=== PATIENT | female | born 1985 | race Two or more races ===

== ENCOUNTER 2016-08-27 00:03 | Emergency (ER) | payer MEDICAID ==
[~2016-08-27] VITALS: Ht 165.1 cm; Wt 72.6 kg
[2016-08-27 00:58] VITALS: BP 115/73
[2016-08-27 01:22] LABS: Urine Bilirubin Negative (Negative); Urine Blood 3+ /uL (Negative); Urine Color Yellow (Yellow); Urine Glucose Normal (Normal); Urine Ketone Negative (Negative); Urine Mucus FEW (None Seen); Urine Nitrite POSITIVE (Negative); Urine RBC 43 /hpf (0 - 4); Urine Squamous Epithelial Cell FEW /hpf (<5); Urine pH 5.5 (5.0-8.0)
[2016-08-27 01:25] LABS: Basophils # (auto) 0 uL; Basophils % (auto) 0.4 % (0.0-2.0); CONDITION Y; Eosinophils # (auto) 0.4 uL; Eosinophils % (auto) 3.6 % (0.0-7.0); Hematocrit 45.5 % (36.0-46.0); Hemoglobin 15.1 g/dL (12.2-16.2); Lymphocytes % (auto) 29.1 % (10.0-50.0); Mean Corpuscular Hemoglobin 29.9 pg (28.0-32.0); Mean Corpuscular Hgb Conc. 33.1 g/dL (32.0-36.0); Mean Corpuscular Volume 90.4 fL (80.0-100.0); Mean Platelet Volume 8.9 fL (7.4-10.4); Monocytes # (auto) 0.7 uL; Monocytes % (auto) 6.6 % (0.0-12.0); Neutrophils # (auto) 6.2 uL; Neutrophils % (auto) 60.3 % (37.0-80.0); Platelet Count (auto) 292 10^3/uL (140-450); Red Cell Distribution Width 14.2 % (11.6-16.0); White Blood Cell 10.2 10^3/uL (4.4-10.8)
[2016-08-27 01:42] LABS: INR 0.9 (0.9-1.15); Partial Thromboplastin Time 26.6 sec (22.64-33.71); Prothrombin Time 9.8 sec (9.37-12.3)
[2016-08-27 01:43] LABS: Anion Gap 9 (5-15); Aspartate Aminotransferase 16 U/L (15-37); Blood Urea Nitrogen 12 mg/dL (7-18); Calcium 8.4 mg/dL (8.5-10.1); Carbon Dioxide 23 mmol/L (21-32); Chloride 109 mmol/L (98-107); GFR African American 92 mL/min; GFR Non-African American 76 mL/min; Glucose 97 mg/dL (74-106); Sodium 141 mmol/L (136-145)
[2016-08-27 01:48] LABS: Alkaline Phosphatase 72 U/L (45-117); Bilirubin, Total 0.2 mg/dL (0.2-1.0); Total Protein 7.7 g/dL (6.4-8.2)
== END 2016-08-27 06:45 | disposition left against medical advice (07) ==
LOC: ER 00:05
DX: R07.9 Chest pain, unspecified (principal); Z53.21 Procedure and treatment not carried out due to patient leaving prior to being seen by health care provider
CPT/HCPCS: 36415; 71020; 80053; 81001; 81025; 84484; 85025; 85610; 85730; 93005

== ENCOUNTER 2019-08-05 14:56 | Inpatient (IN) | payer MEDICAID ==
[~2019-08-05] VITALS: Ht 165.1 cm; Wt 82.2 kg
[2019-08-05 17:16] LABS: Basophils # (auto) 0 10 ^3/uL (0-0.2); Basophils % (auto) 0.5 % (0.0-2.0); Eosinophils # (auto) 0.3 10 ^3/uL (0-0.8); Eosinophils % (auto) 5.1 % (0.0-7.0); Hemoglobin 14.5 g/dL (12.2-16.2); Lymphocytes # (auto) 2.4 10 ^3/uL (0.4-5.4); Lymphocytes % (auto) 38.4 % (10.0-50.0); Mean Corpuscular Hemoglobin 30.7 pg (28.0-32.0); Mean Corpuscular Volume 92.9 fL (80.0-100.0); Monocytes # (auto) 0.4 10 ^3/uL (0-1.3); Neutrophils # (auto) 3.1 10 ^3/uL (1.6-8.6); Platelet Count (auto) 233 10^3/uL (140-450); Red Blood Cells 4.74 10^6/uL (4.0-5.20); Red Cell Distribution Width 13.2 % (11.8-14.3); White Blood Cell 6.2 10^3/uL (4.4-10.8)
[2019-08-05 17:28] LABS: Albumin 3.4 g/dL (3.4-5.0); Anion Gap 7 (5-15); Blood Urea Nitrogen 7 mg/dL (7-18); Calcium 8.1 mg/dL (8.5-10.1); Carbon Dioxide 23 mmol/L (21-32); Chloride 110 mmol/L (98-107); Glucose 117 mg/dL (74-106); Magnesium 2.4 mg/dL (1.6-2.6); Potassium 3.4 mmol/L (3.5-5.1); Sodium 140 mmol/L (136-145)
[2019-08-05 17:34] LABS: Alanine Aminotransferase 26 U/L (13-56); Alkaline Phosphatase 55 U/L (45-117); Aspartate Aminotransferase 17 U/L (15-37); BUN/Creatinine Ratio 9.2; Bilirubin, Total 0.4 mg/dL (0.2-1.0); GFR African American 113 mL/min; GFR Non-African American 93 mL/min; Total Protein 6.6 g/dL (6.4-8.2)
[2019-08-05 18:38] LABS: Urine Bacteria NONE SEEN /hpf (None Seen); Urine Blood Negative /uL (Negative); Urine Mucus FEW (None Seen); Urine WBC 1 /hpf (0 - 5)
[2019-08-05] MEDS ORDERED: cefTRIAXone 1GM/50ML D5W 50 ML IV ONE (18:45)
[2019-08-05] MEDS ORDERED: POTASSIUM CHL 20 Meq TABLET PO ONE (18:45)
[2019-08-05] MEDS ORDERED: SODIUM CHLORIDE 0.9% 1,000 ML IV ONE (18:45)
[2019-08-05] MEDS ORDERED: HYDROcodone-ACET 5/325MG TAB PO PRN (21:30)
[2019-08-05] MEDS ORDERED: LORazepam 0.5 MG TAB PO PRN (21:30)
[2019-08-05] MEDS ORDERED: ACETAMINOPHEN 500 MG TAB PO PRN (21:30)
[2019-08-05] MEDS ORDERED: ALBUTEROL SULF 2.5 MG/0.5ML(0.5%) NEB SOLN NEB PRN (21:30)
[2019-08-05] MEDS ORDERED: ONDANSETRON HCL 4 MG/2 ML VIAL IV PRN (21:30)
[2019-08-05] MEDS ORDERED: SODIUM CHLORIDE 0.9% 1,000 ML IV SCH (21:30)
[2019-08-05] MEDS ORDERED: ACETAMINOPHEN 325 MG TAB PO PRN (21:30)
[2019-08-05] MEDS ORDERED: TEMAZEPAM 15 MG CAP PO PRN (21:30)
[2019-08-05] MEDS ORDERED: IPRATROPIUM BROM 0.5 MG/2.5ML INH SOL NEB PRN (21:30)
[2019-08-05] MEDS ORDERED: MORPHINE SULF INJ 2 MG/ML SYRINGE 1ML IV PRN (21:30)
[2019-08-05] MEDS ORDERED: DOCUSATE SOD 100 MG CAP PO PRN (21:30)
[2019-08-05] MEDS ORDERED: ALBUTEROL SULF HFA 90MCG INH 200DOSE IN SCH ×2 (22:00)
[2019-08-05] MEDS: DOXYCYCLINE 100MG/250ML 250 ML IV SCH (22:00)
[2019-08-05] MEDS: methylPREDNISolone SOD SUCC 125 MG/2 ML VL IV SCH (23:16)
[2019-08-06 00:53] VITALS: BP 110/66
[2019-08-06 04:15] VITALS: BP 106/64
[2019-08-06 05:50] VITALS: BP 115/78
[2019-08-06] MEDS: cefTRIAXone 1GM/50ML D5W 50 ML IV SCH (09:47)
[2019-08-06] MEDS: methylPREDNISolone SOD SUCC 125 MG/2 ML VL IV SCH (09:48)
[2019-08-06] MEDS: ENOXAPARIN SOD 40 MG/0.4 ML SYRINGE SC SCH (09:50)
[2019-08-06] MEDS ORDERED: CHOLECALCIFEROL (VITD3) 1,000IU=25mCg TAB PO SCH (10:00)
[2019-08-06] MEDS ORDERED: AZITHROMYCIN 500MG/ 250ML 250 ML IV SCH (10:00)
[2019-08-06] MEDS ORDERED: ZINC SULFATE 220mg CAP or TAB PO SCH (10:00)
[2019-08-06] MEDS ORDERED: ASCORBIC ACID 1,000 MG TAB PO SCH (10:00)
[2019-08-06] MEDS: DOXYCYCLINE 100MG/250ML 250 ML IV SCH (14:43)
[2019-08-06 16:07] LABS: Basophils # (auto) 0 10 ^3/uL (0-0.2); Basophils % (auto) 0.2 % (0.0-2.0); Eosinophils # (auto) 0 10 ^3/uL (0-0.8); Hematocrit 43.9 % (36.0-46.0); Hemoglobin 14.7 g/dL (12.2-16.2); Lymphocytes # (auto) 1.3 10 ^3/uL (0.4-5.4); Lymphocytes % (auto) 9.4 % (10.0-50.0); Mean Corpuscular Hemoglobin 30.8 pg (28.0-32.0); Mean Corpuscular Hgb Conc. 33.4 g/dL (32.0-36.0); Mean Corpuscular Volume 92.3 fL (80.0-100.0); Monocytes # (auto) 0.6 10 ^3/uL (0-1.3); Neutrophils # (auto) 12.2 10 ^3/uL (1.6-8.6); Neutrophils % (auto) 86.4 % (37.0-80.0); Nucleated Red Blood Cells % 0.1 %; Platelet Count (auto) 259 10^3/uL (140-450); Red Blood Cells 4.76 10^6/uL (4.0-5.20); Red Cell Distribution Width 13.3 % (11.8-14.3); White Blood Cell 14.2 10^3/uL (4.4-10.8)
[2019-08-06 16:25] LABS: Albumin 3.5 g/dL (3.4-5.0); Calcium 8.5 mg/dL (8.5-10.1); Magnesium 2.4 mg/dL (1.6-2.6); Potassium 3.9 mmol/L (3.5-5.1)
[2019-08-06 16:30] LABS: BUN/Creatinine Ratio 11.4; Bilirubin, Total 0.3 mg/dL (0.2-1.0)
[2019-08-06 17:00] VITALS: BP 134/84
[2019-08-06 22:00] VITALS: BP 100/56
[2019-08-06] MEDS: PANTOPRAZOLE 40 MG TAB PO SCH (23:46)
[2019-08-07 05:00] VITALS: BP_SYST 109; BP_SYST 130; BP_DIAS 53; BP_DIAS 69
[2019-08-07 06:50] LABS: Basophils # (auto) 0.1 10 ^3/uL (0-0.2); Basophils % (auto) 0.7 % (0.0-2.0); Eosinophils # (auto) 0.1 10 ^3/uL (0-0.8); Eosinophils % (auto) 1.2 % (0.0-7.0); Hematocrit 42.7 % (36.0-46.0); Hemoglobin 14.3 g/dL (12.2-16.2); Lymphocytes # (auto) 3.6 10 ^3/uL (0.4-5.4); Lymphocytes % (auto) 38.4 % (10.0-50.0); Mean Corpuscular Hemoglobin 31.2 pg (28.0-32.0); Mean Corpuscular Hgb Conc. 33.5 g/dL (32.0-36.0); Mean Corpuscular Volume 92.9 fL (80.0-100.0); Monocytes # (auto) 0.7 10 ^3/uL (0-1.3); Monocytes % (auto) 6.9 % (0.0-12.0); Neutrophils % (auto) 52.8 % (37.0-80.0); Nucleated Red Blood Cells % 0.2 %; Platelet Count (auto) 242 10^3/uL (140-450); Red Cell Distribution Width 13.3 % (11.8-14.3); White Blood Cell 9.5 10^3/uL (4.4-10.8)
[2019-08-07 07:11] LABS: Albumin 3.3 g/dL (3.4-5.0); Calcium 8.1 mg/dL (8.5-10.1); Magnesium 2.6 mg/dL (1.6-2.6); Potassium 3.8 mmol/L (3.5-5.1)
[2019-08-07 07:12] LABS: INR 0.98 (0.9-1.15); Partial Thromboplastin Time 25.5 sec (23.64-32.05)
[2019-08-07 07:15] LABS: BUN/Creatinine Ratio 13.8; Bilirubin, Total 0.2 mg/dL (0.2-1.0); Total Protein 6.5 g/dL (6.4-8.2)
[2019-08-07 09:00] VITALS: BP 112/64
[2019-08-07] MEDS: cefTRIAXone 1GM/50ML D5W 50 ML IV SCH ×2 (10:00→10:22)
[2019-08-07] MEDS: PANTOPRAZOLE 40 MG TAB PO SCH ×2 (10:22→10:33)
[2019-08-07] MEDS: ENOXAPARIN SOD 40 MG/0.4 ML SYRINGE SC SCH ×2 (10:23→10:33)
[2019-08-07 13:00] VITALS: BP 113/62
[2019-08-07 14:24] VITALS: BP 113/62
== END 2019-08-07 14:55 | disposition home or self-care (01) | DRG 145 ==
LOC: ER 14:56 → EAST 14:57
PROVIDERS: ADMIT Hospitalist; ATTEND Internal Medicine
DX: J20.9 Acute bronchitis, unspecified (principal); J18.9 Pneumonia, unspecified organism; Z03.818 Encounter for observation for suspected exposure to other biological agents ruled out; F32.9 Major depressive disorder, single episode, unspecified; F41.9 Anxiety disorder, unspecified; F17.210 Nicotine dependence, cigarettes, uncomplicated; Z90.49 Acquired absence of other specified parts of digestive tract
CPT/HCPCS: 36415; 71045; 80053; 81001; 81025; 83605; 83735; 84100; 84132; 84484; 85025; 85379; 85610; 85730; 87040; 87070; 87804; 87880; 93005; 96365; G0378; J0696

== ENCOUNTER 2020-04-07 09:39 | Emergency (ER) | payer MEDICAID ==
[~2020-04-07] VITALS: Ht 165.1 cm; Wt 74.8 kg
[2020-04-07 10:58] VITALS: BP 115/47
[2020-04-07 11:07] LABS: Basophils # (auto) 0 10 ^3/uL (0-0.2); Basophils % (auto) 0.9 % (0.0-2.0); Eosinophils # (auto) 0.4 10 ^3/uL (0-0.8); Hematocrit 42.3 % (36.0-46.0); Lymphocytes # (auto) 1.9 10 ^3/uL (0.4-5.4); Lymphocytes % (auto) 36.3 % (10.0-50.0); Mean Corpuscular Hemoglobin 30.7 pg (28.0-32.0); Mean Corpuscular Hgb Conc. 33.1 g/dL (32.0-36.0); Mean Corpuscular Volume 92.8 fL (80.0-100.0); Monocytes # (auto) 0.4 10 ^3/uL (0-1.3); Monocytes % (auto) 7.2 % (0.0-12.0); Neutrophils # (auto) 2.5 10 ^3/uL (1.6-8.6); Neutrophils % (auto) 47.6 % (37.0-80.0); Platelet Count (auto) 248 10^3/uL (140-450); Red Blood Cells 4.55 10^6/uL (4.0-5.20); Red Cell Distribution Width 13.9 % (11.8-14.3); White Blood Cell 5.3 10^3/uL (4.4-10.8)
[2020-04-07 11:21] LABS: Urine Bacteria NONE SEEN /hpf (None Seen); Urine Blood 3+ /uL (Negative); Urine WBC 5 /hpf (0 - 5)
[2020-04-07 11:26] LABS: Potassium 4.2 mmol/L (3.5-5.1)
[2020-04-07 11:33] LABS: Albumin 3.5 g/dL (3.4-5.0); BUN/Creatinine Ratio 13.7; Bilirubin, Total 0.3 mg/dL (0.2-1.0); Calcium 8.2 mg/dL (8.5-10.1)
== END 2020-04-07 14:22 | disposition home or self-care (01) ==
LOC: ER 09:39
DX: O20.0 Threatened abortion (principal)
CPT/HCPCS: 36415; 76801; 76817; 80053; 81001; 84702; 85025

== ENCOUNTER 2020-04-09 07:32 | Emergency (ER) | payer MEDICAID ==
[~2020-04-09] VITALS: Ht 165.1 cm; Wt 74.8 kg
[2020-04-09 08:02] LABS: Urine Bacteria FEW /hpf (None Seen); Urine Blood 2+ /uL (Negative); Urine Mucus FEW (None Seen); Urine Specific Gravity 1.022 (1.001-1.035); Urine WBC 7 /hpf (0 - 5)
[2020-04-09] MEDS ORDERED: SODIUM CHLORIDE 0.9% 1,000 ML IV ONE (08:45)
[2020-04-09 10:50] VITALS: BP 115/69
[2020-04-09 11:47] LABS: Basophils # (auto) 0 10 ^3/uL (0-0.2); Basophils % (auto) 0.8 % (0.0-2.0); Eosinophils # (auto) 0.3 10 ^3/uL (0-0.8); Eosinophils % (auto) 5.7 % (0.0-7.0); Hematocrit 42.7 % (36.0-46.0); Hemoglobin 14.5 g/dL (12.2-16.2); Lymphocytes # (auto) 1.6 10 ^3/uL (0.4-5.4); Lymphocytes % (auto) 28.9 % (10.0-50.0); Mean Corpuscular Hemoglobin 31.4 pg (28.0-32.0); Mean Corpuscular Volume 92.3 fL (80.0-100.0); Monocytes # (auto) 0.3 10 ^3/uL (0-1.3); Monocytes % (auto) 5.9 % (0.0-12.0); Neutrophils # (auto) 3.3 10 ^3/uL (1.6-8.6); Neutrophils % (auto) 58.7 % (37.0-80.0); Platelet Count (auto) 259 10^3/uL (140-450); Red Blood Cells 4.63 10^6/uL (4.0-5.20); Red Cell Distribution Width 13.9 % (11.8-14.3); White Blood Cell 5.6 10^3/uL (4.4-10.8)
== END 2020-04-09 10:54 | disposition home or self-care (01) ==
LOC: ER 07:32
DX: O23.41 Unspecified infection of urinary tract in pregnancy, first trimester (principal); O46.91 Antepartum hemorrhage, unspecified, first trimester; O99.331 Smoking (tobacco) complicating pregnancy, first trimester; Z3A.00 Weeks of gestation of pregnancy not specified
CPT/HCPCS: 36415; 81001; 84702; 85025; 96360

== ENCOUNTER 2023-03-28 14:37 | Emergency (ER) | payer MEDICAID ==
[~2023-03-28] VITALS: Ht 165.1 cm; Wt 97.8 kg
[2023-03-28] MEDS ORDERED: HYDROcodone-ACET 5/325MG TAB PO ONE (17:00)
[2023-03-28] MEDS ORDERED: NABU-72 PO (18:34)
[2023-03-28] MEDS ORDERED: METH-1181 PO (18:34)
[2023-03-28] MEDS ORDERED: PRED20TA2 PO (18:34)
[2023-03-28 22:07] VITALS: BP 121/75; PULSE 72; RESP 14; TEMP 97.5; O2SAT 98
== END 2023-03-28 22:08 | disposition home or self-care (01) ==
LOC: ER 14:37
DX: R25.2 Cramp and spasm (principal); R20.2 Paresthesia of skin; M79.662 Pain in left lower leg; F17.210 Nicotine dependence, cigarettes, uncomplicated; Z90.49 Acquired absence of other specified parts of digestive tract
CPT/HCPCS: 72100; 73590; 93971

== ENCOUNTER 2023-11-22 21:52 | Emergency (ER) | payer MEDICAID ==
[~2023-11-22] VITALS: Ht 165.1 cm; Wt 75.1 kg
[~2023-11-22 21:52] MED LIST: METH-1181 PO; NABU-72 PO; PRED20TA2 PO
[2023-11-22 23:25] VITALS: BP 128/77; PULSE 85
[2023-11-22] MEDS: IBUPROFEN 600 MG TAB PO ONE (23:39)
[2023-11-23 00:18] VITALS: RESP 20; O2SAT 98
[2023-11-23] MEDS: ALBUTEROL SULF 2.5 MG/0.5ML(0.5%) NEB SOLN NEB ONE (00:18)
[2023-11-23] MEDS: IPRATROPIUM BROM 0.5 MG/2.5ML INH SOL NEB ONE (00:18)
[2023-11-23] MEDS: DexAMETHasone SOD PHOS 10MG/1ML VIAL INJ IM ONE (00:33)
[2023-11-23] MEDS ORDERED: PRED20TA2 PO (00:52)
[2023-11-23 01:03] VITALS: TEMP 98
== END 2023-11-23 01:07 | disposition home or self-care (01) ==
LOC: ER 21:52
DX: J45.901 Unspecified asthma with (acute) exacerbation (principal); R07.89 Other chest pain; F41.9 Anxiety disorder, unspecified; F32.A Depression, unspecified; Z79.899 Other long term (current) drug therapy; Z90.49 Acquired absence of other specified parts of digestive tract
CPT/HCPCS: 71045; 94640; 96372; 99283; J1100